=== PATIENT | male | born 1970 ===

== ENCOUNTER 2022-10-16 09:57 | Emergency (ER) | payer OTHER ==
[2022-10-16] MEDS ORDERED: Bupivacaine 0.25% 10 ML VIAL ONE (11:24)
[2022-10-16] MEDS ORDERED: Morphine 4 MG/ML VIAL ONE (11:24)
[2022-10-16] MEDS ORDERED: Lidocaine 1% w/Epinephrine 1:100K 20 ML VIAL ONE (11:41)
[2022-10-16] MEDS ORDERED: Bacitracin 1 PK ONE (13:12)
[2022-10-16] MEDS ORDERED: Boostrix 0.5 ML (Tdap) VIAL (>/=7 yrs of age) ONE (13:12)
== END 2022-10-16 13:40 | disposition home or self-care (01) ==
LOC: ERS 09:57
DX: S43.015A Anterior dislocation of left humerus, initial encounter (principal); S43.035A Inferior dislocation of left humerus, initial encounter; S61.411A Laceration without foreign body of right hand, initial encounter; I10 Essential (primary) hypertension; E11.9 Type 2 diabetes mellitus without complications; Z79.84 Long term (current) use of oral hypoglycemic drugs; Z79.899 Other long term (current) drug therapy; W17.89XA Other fall from one level to another, initial encounter; Y99.0 Civilian activity done for income or pay
CPT/HCPCS: 12002; 23650; 90471; 90715; 96372; J2270; S0020